=== PATIENT | male | born 1960 | race Caucasian/White ===

== ENCOUNTER → 2019-02-06 | Outpatient (CLI) | payer OTHER ==
[~2019-02-06] MED LIST: ATOR20 PO; DIPATR PO; IRBE75 PO; LEVSOD75 PO; PROM25 PO
== END | disposition home or self-care (01) ==
LOC: PLD 10:14 → LAB SHORT 10:14
DX: D48.5 Neoplasm of uncertain behavior of skin (principal)
CPT/HCPCS: 88305

== ENCOUNTER 2019-12-02 08:23 | Day surgery (SDC) | payer BC ==
[~2019-12-02] VITALS: Ht 177.8 cm; Wt 92.2 kg
[~2019-12-02 08:23] MED LIST changes: +IRBE150 PO; +LAMISIL AT12 GM; +LEVSOD100 PO; +METAMUCIL660 GM PO; +Prevacid Soluta30 MG PO
== END 2019-12-02 10:55 | disposition home or self-care (01) ==
LOC: ORSCSDS 08:23
PROVIDERS: Internal Medicine Gastroenterology
PROC: 0DBH8ZX Excision of Cecum, Via Natural or Artificial Opening Endoscopic, Diagnostic (ICD-10-PCS; principal; 2019-12-02 09:45)
PROC: 0DBM8ZX Excision of Descending Colon, Via Natural or Artificial Opening Endoscopic, Diagnostic (ICD-10-PCS; principal; 2019-12-02 09:45)
PROC: 0DBL8ZX Excision of Transverse Colon, Via Natural or Artificial Opening Endoscopic, Diagnostic (ICD-10-PCS; principal; 2019-12-02 09:45)
DX: Z12.11 Encounter for screening for malignant neoplasm of colon (principal); Z86.010 Personal history of colon polyps; Z80.0 Family history of malignant neoplasm of digestive organs; D12.3 Benign neoplasm of transverse colon; D12.0 Benign neoplasm of cecum; D12.4 Benign neoplasm of descending colon; K57.30 Diverticulosis of large intestine without perforation or abscess without bleeding; I10 Essential (primary) hypertension; Z79.899 Other long term (current) drug therapy
CPT/HCPCS: 88305; J2704; J7120

== ENCOUNTER → 2020-08-27 | Outpatient (CLI) | payer BC | END | disposition home or self-care (01) | LOC: LAB SHORT 12:29 → PLD 12:29 | DX: D48.5 Neoplasm of uncertain behavior of skin (principal) | CPT/HCPCS: 88305 ==

== ENCOUNTER → 2022-03-22 | Outpatient (CLI) | payer BC | END | disposition home or self-care (01) | LOC: LAB SHORT 11:03 → PLD 11:03 | DX: D48.5 Neoplasm of uncertain behavior of skin (principal) | CPT/HCPCS: 88305 ==

== ENCOUNTER 2023-09-11 08:17 | Day surgery (SDC) | payer BC ==
[~2023-09-11] VITALS: Ht 177.8 cm; Wt 98.2 kg
[2023-09-11 10:43] VITALS: BP 126/79
== END 2023-09-11 10:55 | disposition home or self-care (01) ==
LOC: ORSCSDS 08:17
PROVIDERS: Internal Medicine Gastroenterology
PROC: 0DBN8ZX Excision of Sigmoid Colon, Via Natural or Artificial Opening Endoscopic, Diagnostic (ICD-10-PCS; principal; 2023-09-11 09:45)
PROC: 0DBM8ZX Excision of Descending Colon, Via Natural or Artificial Opening Endoscopic, Diagnostic (ICD-10-PCS; principal; 2023-09-11 09:45)
DX: Z12.11 Encounter for screening for malignant neoplasm of colon (principal); Z80.0 Family history of malignant neoplasm of digestive organs; Z86.010 Personal history of colon polyps; R12 Heartburn; K57.30 Diverticulosis of large intestine without perforation or abscess without bleeding; D12.4 Benign neoplasm of descending colon; K63.5 Polyp of colon; Z79.899 Other long term (current) drug therapy
CPT/HCPCS: 88305; J2704; J7120